=== PATIENT | male | born 1985 | race Caucasian/White ===

== ENCOUNTER → 2018-08-30 | Outpatient (CLI) | payer OTHER ==
--- NOTE | 2018-08-30 12:53 | REP ---
MR LUMBAR SPINE WITHOUT AND WITH CONTRAST: HISTORY: Back pain. CONTRAST: ProHance 15 mL Decreased signal intensity on T2-weighted images is present in the L5-S1 intervertebral discs. The disc is decreased in height. These findings are consistent with disc degeneration. There is no disc bulge or herniation at the L1-2 through L3-4 levels. The nerves exit the neural foramina without compression. A diffuse disc bulge is present at the L4-5 level. This abuts the thecal sac. The L4 nerves exit the neural foramina without compression. A diffuse disc bulge and small disc protrusion central and eccentric to the right are present at the L5-S1 level. There is minimal compression of the right S1 nerve. There is no thecal sac compression. There is hypertrophy of the posterior articulating facets. The L5 nerves exit the neural foramina without compression. A right laminectomy defect is present. The conus medullaris is normal in appearance terminating at the level of the T12-L1 intervertebral disc. Increased signal intensity on T2-weighted images is present in the endplates of the L5 and S1 vertebral bodies. This represents degenerative change. IMPRESSION: 1. Diffuse disc bulge at the L4-5 level. This abuts the thecal sac. 2. Diffuse disc bulge and small disc protrusion central and eccentric to the right at the L5-S1 level with minimal compression of the right S1 nerve. A right laminectomy defect is present. Electronically Signed by Gulshan Tobin MD 08/30/2018 01:03 P
== END ==
LOC: M PLARAD 10:33
PROVIDERS: ATTEND Physician Assistant
DX: M51.26 Other intervertebral disc displacement, lumbar region (principal); M51.27 Other intervertebral disc displacement, lumbosacral region

== ENCOUNTER 2019-02-04 11:21 | Emergency (ER) | payer OTHER ==
[~2019-02-04] VITALS: Ht 185.4 cm; Wt 82.9 kg
[2019-02-04] MEDS ORDERED: ACETAMINOPHEN 325 MG TAB PO ONE (12:00)
[2019-02-04] MEDS ORDERED: ONDANSETRON 4 MG ORAL DISINTEGRATING TAB (Q0162 PER 1MG) PO ONE (12:00)
[2019-02-04] MEDS ORDERED: ONDA4TAB6 PO (12:51)
[2019-02-04 13:03] VITALS: BP 122/73
== END 2019-02-04 13:17 | disposition home or self-care (01) ==
LOC: M ED 11:21
DX: S09.90XA Unspecified injury of head, initial encounter (principal); R51 Headache; W22.8XXA Striking against or struck by other objects, initial encounter; Y92.138 Other place on military base as the place of occurrence of the external cause; Y99.1 Military activity
CPT/HCPCS: 99283; Q0162

== ENCOUNTER → 2020-05-03 | Outpatient (CLI) | payer SELFPAY ==
[~2020-05-03] MED LIST: ONDA4TAB6 PO
== END ==
LOC: M LABSMTC 11:02
PROVIDERS: ATTEND Pediatrics
DX: Z20.822 Contact with and (suspected) exposure to COVID-19 (principal)

== ENCOUNTER → 2022-05-12 | Outpatient (CLI) | payer OTHER | LOC: M PLAIMG 05-11 11:02 | PROVIDERS: ATTEND Nurse Practitioner Family | DX: M54.50 Low back pain, unspecified (principal) ==